=== PATIENT | male | born 1940 | race Caucasian/White ===

== ENCOUNTER → 2023-10-27 09:02 | Outpatient (REF) | payer MEDICARE, SELFPAY | LOC: HWRAD 09:02 | PROVIDERS: ATTENDING PHYSICIAN Family Medicine | DX: M85.80 Other specified disorders of bone density and structure, unspecified site (principal); M85.89 Other specified disorders of bone density and structure, multiple sites | CPT/HCPCS: 77080 ==

== ENCOUNTER → 2025-03-13 14:42 | Outpatient (REF) | payer MEDICARE, SELFPAY | LOC: HWRCS 14:42 | PROVIDERS: ATTENDING PHYSICIAN Student in an Organized Health Care Education/Training Program | DX: R01.1 Cardiac murmur, unspecified (principal) | CPT/HCPCS: 93306 ==